=== PATIENT | female | born 2005 | race Caucasian/White ===

== ENCOUNTER 2024-10-22 19:25 | Inpatient (IN) | payer OTHER ==
[~2024-10-22 19:25] MED LIST: Bupivacaine 0.25% 10 ML SDV ONE; Ropivacaine 0.2% PF 2 MG/ML 20 ML SDV ONE
[2024-10-22] MEDS ORDERED: Sodium Chloride 0.9% 10 ML Syringe FLUSH PRN (23:10)
[2024-10-22] MEDS ORDERED: Lidocaine 1% 50 ML MDV INJECT PRN (23:10)
[2024-10-22] MEDS ORDERED: Nalbuphine 10 MG/1 ML Vial IVPUSH PRN (23:10)
[2024-10-22] MEDS ORDERED: Oxytocin/0.9 % Sodium Chloride 30 UNIT/500 ML BAG IV SCH (23:15)
[2024-10-22] MEDS: Lactated Ringers 1,000 ML IV SCH (23:24)
[2024-10-22 23:30] LABS: BASOPHILS PERCENT AUTO 0.2 % (0.0-1.0); EOSINOPHILS PERCENT AUTO 0.2 % (0.0-6.0); HEMATOCRIT 39.1 % (37.0-47.0); HEMOGLOBIN 13.2 gm/dl (12.0-16.0); IMMATURE GRAN ABSOLUTE AUTO 0.11 K/mm3 (0.00-0.05); IMMATURE GRAN PERCENT AUTO 0.6 % (0.0-0.4); LYMPHOCYTES ABSOLUTE AUTO 1.9 K/mm3 (1.0-4.8); LYMPHOCYTES PERCENT AUTO 10.9 % (24.0-44.0); MEAN CORPUSCULAR HEMOGLOBIN 31.4 pg (28.0-32.0); MEAN CORPUSCULAR HGB CONC 33.8 g/dl (32.0-36.0); MEAN CORPUSCULAR VOLUME 92.9 fl (83.0-99.0); MEAN PLATELET VOLUME 9.4 fl (9.4-12.3); MONOCYTES ABSOLUTE AUTO 0.8 K/mm3 (0.0-0.8); MONOCYTES PERCENT AUTO 4.8 % (0.0-8.0); NEUTROPHILS ABSOLUTE AUTO 14.4 K/mm3 (1.8-7.7); NEUTROPHILS PERCENT AUTO 83.3 % (41.0-71.0); PLATELET COUNT,PLT 210 K/mm3 (150-400); RED BLOOD CELL COUNT 4.21 M/mm3 (4.10-5.30); WHITE BLOOD CELL COUNT,WBC 17.28 K/mm3 (3.9-11.3)
[2024-10-22] MEDS: Ondansetron 4 MG/2 ML SDV IVPUSH PRN (23:48)
[2024-10-23] MEDS ORDERED: diphenhydrAMINE 50 MG/ML SDV IVPUSH PRN (00:04)
[2024-10-23] MEDS ORDERED: ePHEDrine 50 MG/ML SDV IVPUSH PRN (00:04)
[2024-10-23] MEDS: Ropivacaine 200 MG in Premix Bag 1 BAG EPIDUR PRN (00:10)
[2024-10-23] MEDS: Oxytocin/0.9 % Sodium Chloride 30 UNIT/500 ML BAG IV SCH (05:13)
[2024-10-23] MEDS: Methylergonovine 0.2 MG/1 ML Amp IM PRN (06:36)
[2024-10-23] MEDS ORDERED: Sodium Chloride 0.9% 10 ML Syringe FLUSH SCH (09:00)
[2024-10-23] MEDS: Levothyroxine 50 MCG Tab PO SCH (09:19)
[2024-10-23] MEDS: buPROPion 150 MG Tab.ER PO SCH (09:19)
[2024-10-23] MEDS ORDERED: Witch Hazel Medicated Pads 40/Jar TOP PRN (09:20)
[2024-10-23] MEDS ORDERED: Acetaminophen 325 MG Tab PO PRN (09:20)
[2024-10-23] MEDS ORDERED: Benzocaine/Menthol 20%-0.5% Spray 78 GM Cannister TOP PRN (09:20)
[2024-10-23] MEDS: Ibuprofen 600 MG Tab PO SCH (15:36)
[2024-10-24] MEDS: Docusate Sodium 100 MG Cap PO PRN (00:02)
[2024-10-24] MEDS: Measles, Mumps & Rubella Vaccine 0.5 ML SDV SUBCUT ONE (14:43)
== END 2024-10-24 16:30 | disposition home or self-care (01) | DRG 807 ==
LOC: JD.OBCHECK 19:25 → JD.OB 19:25 → JD.OBCHECK 23:10 → OBSVTOIN 10-23 06:17 → JD.OB 10-23 06:18
PROVIDERS: ADMIT Obstetrics & Gynecology; ATTEND Obstetrics & Gynecology
PROC: 10D07Z6 Extraction of Products of Conception, Vacuum, Via Natural or Artificial Opening (ICD-10-PCS; principal; 2024-10-23)
PROC: 0KQM0ZZ Repair Perineum Muscle, Open Approach (ICD-10-PCS; 2024-10-23)
PROC: 10907ZC Drainage of Amniotic Fluid, Therapeutic from Products of Conception, Via Natural or Artificial Opening (ICD-10-PCS; 2024-10-23)
PROC: 3E0S3BZ Introduction of Anesthetic Agent into Epidural Space, Percutaneous Approach (ICD-10-PCS; 2024-10-23)
PROC: 00HU33Z Insertion of Infusion Device into Spinal Canal, Percutaneous Approach (ICD-10-PCS; 2024-10-23)
DX: O70.1 Second degree perineal laceration during delivery (principal); Z37.0 Single live birth; Z3A.38 38 weeks gestation of pregnancy
CPT/HCPCS: 01967; 36415; 51701; 51702; 59025; 59409; 85025; 86592; 86850; 86900; 86901; 90471; 90707; A9270-GY; C1758; J0665; J2210; J2405; J2795; J7120; J7999

== ENCOUNTER 2024-11-15 21:27 | Observation (INO) | payer OTHER ==
[2024-11-15 23:06] LABS: BASOPHILS PERCENT AUTO 0.4 % (0.0-1.0); EOSINOPHILS ABSOLUTE AUTO 0.1 K/mm3 (0.0-0.4); EOSINOPHILS PERCENT AUTO 1.3 % (0.0-6.0); HEMATOCRIT 36.4 % (37.0-47.0); HEMOGLOBIN 12.3 gm/dl (12.0-16.0); IMMATURE GRAN ABSOLUTE AUTO 0.02 K/mm3 (0.00-0.05); IMMATURE GRAN PERCENT AUTO 0.3 % (0.0-0.4); LYMPHOCYTES ABSOLUTE AUTO 2.6 K/mm3 (1.0-4.8); LYMPHOCYTES PERCENT AUTO 33.7 % (24.0-44.0); MEAN CORPUSCULAR HEMOGLOBIN 30.7 pg (28.0-32.0); MEAN CORPUSCULAR HGB CONC 33.8 g/dl (32.0-36.0); MEAN CORPUSCULAR VOLUME 90.8 fl (83.0-99.0); MEAN PLATELET VOLUME 9.3 fl (9.4-12.3); MONOCYTES ABSOLUTE AUTO 0.5 K/mm3 (0.0-0.8); NEUTROPHILS ABSOLUTE AUTO 4.4 K/mm3 (1.8-7.7); NEUTROPHILS PERCENT AUTO 57.3 % (41.0-71.0); PLATELET COUNT,PLT 256 K/mm3 (150-400); RED BLOOD CELL COUNT 4.01 M/mm3 (4.10-5.30); WHITE BLOOD CELL COUNT,WBC 7.59 K/mm3 (3.9-11.3)
[2024-11-15 23:28] LABS: A/G RATIO 1.2 (1-2); ALBUMIN 3.9 g/dl (3.4-5.0); ANION GAP 14.9 (5-15); BILIRUBIN TOTAL 0.4 mg/dL (0.2-1.0); BUN/CREATININE RATIO 13.3 (14-18); CALCIUM 9.4 mg/dL (8.5-10.1); CREATININE 1.2 mg/dL (0.55-1.02); EST CRCL DRUG DOSING (CG) 64.04 mL/min; POTASSIUM,K 3.9 mEq/L (3.5-5.1); PROTEIN TOTAL,TP 7.3 g/dl (6.4-8.2)
[2024-11-16 00:11] LABS: C. TRACHOMATIS BY PCR NOT DETECTED; N. GONORRHOEAE BY PCR NOT DETECTED
[2024-11-16] MEDS: Sodium Chloride 0.9% 1,000 ML IV ONE (01:37)
[2024-11-16] MEDS: Sodium Chloride 0.9% 10 ML Syringe FLUSH PRN (01:38)
[2024-11-16 01:47] LABS: APPEARANCE,URINE CLEAR (Clear); BILIRUBIN,URINE NEGATIVE (Negative); COLOR,URINE YELLOW (Yellow); GLUCOSE,URINE NEGATIVE (Negative); KETONES,URINE NEGATIVE (Negative); LEUKOCYTE ESTERASE,URINE 1+ (Negative); NITRITE,URINE NEGATIVE (Negative); OCCULT BLOOD,URINE 3+ (Negative); PROTEIN,URINE NEGATIVE (Negative); UROBILINOGEN,URINE 0.2 (0.2-1.0)
[2024-11-16 02:04] LABS: BACTERIA,URINE RARE /hpf (FEW); MUCUS,URINE NOT SEEN /hpf (FEW); RBC,URINE 50-75 /hpf (0-5); SQUAMOUS EPITHELIAL CELLS,UR 0-5 /hpf (0-5); WBC,URINE 0-5 /hpf (0-5)
[2024-11-16] MEDS ORDERED: fentaNYL 100 MCG/2 ML SDV ONE (06:18)
[2024-11-16] MEDS ORDERED: Propofol 200 MG/20 ML SDV ONE (06:18)
[2024-11-16] MEDS ORDERED: Ketamine 200 MG/20 ML MDV ONE (06:18)
[2024-11-16] MEDS ORDERED: ceFAZolin 2 GM Vial ONE (06:23)
[2024-11-16] MEDS ORDERED: Dexamethasone 4 MG/ML 5 ML MDV ONE (06:23)
[2024-11-16] MEDS ORDERED: Lidocaine 1% 5 ML VIAL ONE (06:23)
[2024-11-16] MEDS ORDERED: Ondansetron 4 MG/2 ML SDV ONE (06:23)
[2024-11-16] MEDS ORDERED: Ketorolac 30 MG/ML SDV ONE (06:23)
[2024-11-16] MEDS ORDERED: fentaNYL 100 MCG/2 ML SDV IVPUSH PRN (08:29)
[2024-11-16] MEDS ORDERED: Ondansetron 4 MG/2 ML SDV IVPUSH PRN (08:29)
[2024-11-16] MEDS ORDERED: HYDROmorphone 0.5 MG/0.5 ML Syringe IVPUSH PRN (08:29)
== END 2024-11-16 09:23 | disposition home or self-care (01) ==
LOC: JD.ED 21:27 → JD.MS 11-16 00:56
PROVIDERS: ADMIT Obstetrics & Gynecology; ATTEND Obstetrics & Gynecology
DX: O72.2 Delayed and secondary postpartum hemorrhage (principal); J45.909 Unspecified asthma, uncomplicated; E03.9 Hypothyroidism, unspecified; Z79.890 Hormone replacement therapy; Z79.899 Other long term (current) drug therapy
CPT/HCPCS: 36415; 59160; 76830; 80053; 81001; 81515; 83690; 85025; 86850; 86900; 86901; 87086; 87491; 87591; 96360; 99285; J0690; J1100; J1885; J2405; J2704; J3010; J3490; J7030; 96361; G0378